=== PATIENT | female | born 1970 | race Caucasian/White ===

== ENCOUNTER → 2018-05-26 | Outpatient (CLI) | payer BC ==
[~2018-05-26] MED LIST: Nolvadex20 MG PO
[2018-05-28 16:08] LABS: HPV 16 Negative (Negative); HPV 18 Negative (Negative); HPV OTHER HR TYPES Negative (Negative)
== END | disposition home or self-care (01) ==
LOC: LAB SHORT 17:59 → LAB 17:59
PROVIDERS: Obstetrics & Gynecology Gynecology
DX: Z12.4 Encounter for screening for malignant neoplasm of cervix (principal)
CPT/HCPCS: 87624; G0123

== ENCOUNTER → 2019-06-01 | Outpatient (CLI) | payer BC ==
[2019-06-03 15:07] LABS: HPV 16 Negative (Negative); HPV 18 Negative (Negative); HPV OTHER HR TYPES Negative (Negative)
== END | disposition home or self-care (01) ==
LOC: LAB 19:16 → LAB SHORT 19:16
PROVIDERS: Obstetrics & Gynecology Gynecology
DX: Z12.4 Encounter for screening for malignant neoplasm of cervix (principal)
CPT/HCPCS: 87624; G0123

== ENCOUNTER → 2019-06-22 | Outpatient (CLI) | payer BC | END | disposition home or self-care (01) | LOC: LAB SHORT 07:40 → PLD 07:40 | DX: Z51.81 Encounter for therapeutic drug level monitoring (principal); Z79.810 Long term (current) use of selective estrogen receptor modulators (SERMs) | CPT/HCPCS: 88305 ==

== ENCOUNTER 2019-10-21 10:29 | Day surgery (SDC) | payer BC ==
[~2019-10-21] VITALS: Ht 170.2 cm; Wt 72.4 kg
== END 2019-10-21 12:15 | disposition home or self-care (01) ==
LOC: ORSCSDS 10:29
PROVIDERS: Internal Medicine Gastroenterology
PROC: 0DJD8ZZ Inspection of Lower Intestinal Tract, Via Natural or Artificial Opening Endoscopic (ICD-10-PCS; principal; 2019-10-21 11:45)
DX: Z12.11 Encounter for screening for malignant neoplasm of colon (principal); J45.909 Unspecified asthma, uncomplicated; E78.5 Hyperlipidemia, unspecified; Z79.899 Other long term (current) drug therapy
CPT/HCPCS: J2704; J7120

== ENCOUNTER → 2020-05-31 | Outpatient (CLI) | payer BC ==
[2020-06-01 14:09] LABS: HPV 16 Negative (Negative); HPV 18 Negative (Negative); HPV OTHER HR TYPES Negative (Negative)
== END ==
LOC: LAB 18:42 → LAB SHORT 18:42
PROVIDERS: Obstetrics & Gynecology
DX: Z01.419 Encounter for gynecological examination (general) (routine) without abnormal findings (principal)
CPT/HCPCS: 87624; G0123

== ENCOUNTER → 2020-06-22 | Outpatient (CLI) | payer BC | LOC: LAB SHORT 11:17 → LAB 11:17 | DX: D48.5 Neoplasm of uncertain behavior of skin (principal) | CPT/HCPCS: 88305 ==

== ENCOUNTER → 2021-05-02 | Outpatient (CLI) | payer BC | LOC: LAB SHORT 13:35 → LAB 13:35 | DX: L08.0 Pyoderma (principal); Z88.0 Allergy status to penicillin; Z88.5 Allergy status to narcotic agent; Z88.1 Allergy status to other antibiotic agents | CPT/HCPCS: 87070; 87205 ==

== ENCOUNTER → 2021-05-02 | Outpatient (CLI) | payer BC | END | disposition home or self-care (01) | LOC: LAB 07:41 → LAB SHORT 07:41 | DX: B35.4 Tinea corporis (principal) | CPT/HCPCS: 88305; 88312 ==

== ENCOUNTER → 2023-02-05 | Outpatient (CLI) | payer BC | END | disposition home or self-care (01) | LOC: LAB SHORT 18:00 → LAB 18:00 | DX: J02.9 Acute pharyngitis, unspecified (principal) | CPT/HCPCS: 87081 ==

== ENCOUNTER → 2023-07-06 | Outpatient (CLI) | payer BC | LOC: LAB SHORT 10:57 → LAB 10:57 | DX: N39.0 Urinary tract infection, site not specified (principal) | CPT/HCPCS: 87077; 87086; 87186 ==